=== PATIENT | female | born 1955 | race Caucasian/White ===

== ENCOUNTER 2024-04-24 15:04 | Emergency (ER) | payer BC, SELFPAY ==
[2024-04-24 15:06] VITALS: BP 136/86
--- NOTE | 2024-04-24 15:11 | ED.GENMED ---
ED Provider Triage
<Jose Munoz PA-C - Last Filed: 04/24/24 15:12>
-
Patient seen by provider in Triage?: Seen in Triage
Attestation: A medical screening examination has been initiated by a qualified medical provider. Based on the assessment performed at this time, it has been determined that an emergent medical condition may exist and the patient has been informed
that further medical evaluation and possible additional diagnostic testing may be needed.
HPI: 68-year-old female presenting to the emergency after dropping a heavy piece of wood on the top of her left foot. Patient did sustain abrasion/laceration. Applied bandage to the area. Unknown last tetanus but does not want a tetanus vaccine.
No other injuries sustained. X-ray of the foot ordered.
GENERAL: Alert , in no apparent distress
EYE: No visual abnormalities.
NECK: Trachea midline
ENT: No visible abnormalities.
LUNGS: No acute respiratory distress
NEUROLOGICAL: Alert and oriented
SKIN: Skin intact. No visible changes.
MUSCULOSKELETAL: Moving extremities normally
PSYCH: Normal and appropriate interaction.
This is a medical evaluation conducted in person to initiate diagnostic evaluation and provide initial therapeutics. Please see further documentation by the treating clinician.
History of Present Illness
<Jose Munoz PA-C - Last Filed: 04/24/24 15:12>
General
Chief Complaint: Musculo-Skeletal Complaint
Time Seen by Provider: 04/24/24 18:07
<Valeria Medeiros PA-C - Last Filed: 04/24/24 23:48>
General
Source: patient
Exam Limitations: none
Nursing documentation reviewed up to this point in time: agreed with
History of Present Illness
History of Present Illness:
68 y/o F with no sig pmh
dropped a heavy wooden piece of furniture on her bare R foot today
has a few sperficial lacerations
initially able to walk on heel but having more pain and swelling
no numbnes/tingling/weakness
last tetanus known
Past History
<Valeria Medeiros PA-C - Last Filed: 04/24/24 23:48>
Past History
ED Past Medical History: Psychiatric
Social History
Tobacco: Non-smoker
Alcohol: None
Drug: None
Personal: Single
Living: alone
Review of Systems
<Valeria Medeiros PA-C - Last Filed: 04/24/24 23:48>
Review of Systems
Allergies reviewed?: Yes
All Other Systems: Not applicable
Phy Exam
<Valeria Medeiros PA-C - Last Filed: 04/24/24 23:48>
Physical Exam
Physical Exam:
GENERAL: Alert , in no apparent distress, comfortable at rest
HEAD: NCAT
CV: 2+ DP PULSES B/L
NEUROLOGICAL: Alert and oriented, no focal neuro deficits, , 5/5 strength, sensation intact,
SKIN: Warm and dry,
superficial laceration 2mm dorsum of the left foot distal 1st metatarsal region as well as a small avulsion 3 mm medial left great toe
MUSCULOSKELETAL: left foot medially 1st metarsal tendernses with ecchymosis and swelling
limited ROM of 1st mtp joint
ankle normal
PSYCH: Normal and appropriate interaction.
Course
<Jose Munoz PA-C - Last Filed: 04/24/24 15:12>
Orders/Labs/Results
Orders:
Orders
04/24/24 15:10
CR Foot - Left Min 3 Views Urgent
Comment:
Reason For Exam: dropped large piece of wood, laceration
04/24/24 18:21
Cephalexin Monohydrate [Keflex] 500 mg PO NOW STA
Ibuprofen [Motrin] 600 mg PO NOW STA
Tetanus/Diphth/Acelpertussis [Adacel] 0.5 ml IM .ONCE ONE
Vital Signs
Initial and Last Documented VS:
Initial Vital Signs
Temp Pulse Resp BP Pulse Ox
97.8 F 64 16 136/86 97
04/24/24 15:06 04/24/24 15:06 04/24/24 15:06 04/24/24 15:06 04/24/24 15:06
Last Documented Vital Signs
Temp Pulse Resp BP Pulse Ox
97.8 F 64 16 136/86 97
04/24/24 15:06 04/24/24 15:06 04/24/24 15:06 04/24/24 15:06 04/24/24 15:06
<Valeria Medeiros PA-C - Last Filed: 04/24/24 23:48>
Orders/Labs/Results
Orders:
Orders
04/24/24 15:10
CR Foot - Left Min 3 Views Urgent
Comment:
Reason For Exam: dropped large piece of wood, laceration
04/24/24 18:21
Cephalexin Monohydrate [Keflex] 500 mg PO NOW STA
Ibuprofen [Motrin] 600 mg PO NOW STA
Tetanus/Diphth/Acelpertussis [Adacel] 0.5 ml IM .ONCE ONE
Vital Signs
Initial and Last Documented VS:
Initial Vital Signs
Temp Pulse Resp BP Pulse Ox
97.8 F 64 16 136/86 97
04/24/24 15:06 04/24/24 15:06 04/24/24 15:06 04/24/24 15:06 04/24/24 15:06
Last Documented Vital Signs
Temp Pulse Resp BP Pulse Ox
97.8 F 64 16 136/86 97
04/24/24 15:06 04/24/24 15:06 04/24/24 15:06 04/24/24 15:06 04/24/24 15:06
<Valeria Medeiros PA-C - Last Filed: 04/24/24 23:48>
MDM/Problems Addressed
Differential Diagnosis Includes:
foot fracture, contusion, laceration, abrasions
MDM/Problems Addressed:
68 y/o F
dropped piece of wood on her foot
has a few abrasions/avulsions with STS and ecchymsosi
xray indep reviewed with nondisplaced oblique mid shaft 1st metatarsal fx
d/w dr. matute
ok for walking boot/walker and wbat;
f/u with ortho
<Valeria Medeiros PA-C - Last Filed: 04/24/24 23:48>
*Critical Care Note
Total Time (30-74mins, 75-104mins- exclusive of procedures): Not Applicable
ED Attending Note
<Jose Munoz PA-C - Last Filed: 04/24/24 15:12>
-
Portions of this chart may have been created with voice recognition software.� Occasional wrong word or��sound alike� substitutions may have occurred due to the inherent limitations of voice recognition software.
Discharge Plan
Departure
Patient Disposition: Home (Routine Discharge)
Date of Disposition: 04/24/24
Time of Disposition: 18:43
Patient with high blood pressure during this ER visit?: No
Covid-19: Not Applicable
Discharge Problem:
Closed nondisplaced fracture of first left metatarsal bone
Instructions: Foot Fracture (DC)
Referrals:
NONE,* [Family Provider] -
Tucker Matute MD [Active] - Follow up in 2-3 days
Activity Restrictions/Additional Instructions:
You broke the midshaft of the left first metatarsal bone. You can wear the boot while you are walking and do partial weightbearing with a walker as tolerated. You can also get a knee scooter if it is too painful. You can remove the boot while you
are seated and ice off-and-on. Take ibuprofen every 8 hours with food for pain and swelling for 3 to 5 days. To prevent infection because of the laceration take the Keflex 3 times a day for 7 days. Ice off-and-on. Watch for worsening redness or
drainage from the wounds. Make sure to clean once a day with soap and water and apply Neosporin and a nonstick dressing.
call ortho for follow up
Interventions
Interventions:
*General Assessment Last Done: 04/24/24 18:08
ED- Fall Risk Assessment Last Done: 04/24/24 19:10
*Nursing Disposition Last Done: 04/24/24 19:10
ED-Musculoskeletal Assessment Last Done: 04/24/24 18:08
Discharge Date and Time
Discharge Date/Time: 04/24/24 19:10
Print Language: LITHUANIAN
[2024-04-24] MEDS: KEFLEX 500 MG PO (18:44)
[2024-04-24] MEDS: MOTRIN 600 MG PO (18:44)
[2024-04-24] MEDS: ADACEL 0.5 ML IM (18:44)
== END 2024-04-24 19:10 | disposition home or self-care (01) ==
LOC: EMR 15:04
PROVIDERS: EMERGENCY PHYSICIAN Emergency Medicine
DX: S92.315A Nondisplaced fracture of first metatarsal bone, left foot, initial encounter for closed fracture (principal); S91.312A Laceration without foreign body, left foot, initial encounter; W22.8XXA Striking against or struck by other objects, initial encounter
CPT/HCPCS: 99283; 90471; 73630; 90715